=== PATIENT | male | born 2000 | race Caucasian/White ===

== ENCOUNTER 2022-09-02 05:52 | Emergency (ER) | payer OTHER ==
[2022-09-02] MEDS ORDERED: ONDANSETRON 4 MG/2 ML VIAL ONE (06:21)
[2022-09-02] MEDS ORDERED: PANTOPRAZOLE 40 MG INJ ONE (06:22)
[2022-09-02] MEDS ORDERED: NA CHLORIDE 0.9% 2,000 ML ONE (06:22)
[2022-09-02 06:24] LABS: Protime INR 0.99
[2022-09-02 06:36] LABS: Absolute Lymphocytes (CBC) 2.4 K/uL (0.7-4.9); Hematocrit 59.2 % (39.6-49.0); Lymphocytes % 10.6 % (15.3-44.8); MCV 87.9 fL (80-100); MPV 9.3 fL (7.6-11.3); RBC Red Blood Cell Count 6.73 M/uL (4.33-5.43)
[2022-09-02 06:48] LABS: Bilirubin Direct 0.3 mg/dL (0-0.2); Bilirubin Total 1.2 mg/dL (0.2-1.0); Protein, Total 12.2 g/dL (6.4-8.2); Troponin High Sensitivity 12.1 pg/mL (<58.9)
[2022-09-02 06:50] LABS: Albumin 7.7 g/dL (3.4-5.0); Magnesium 3.7 mg/dL (1.6-2.4); Potassium 2.9 mmol/L (3.5-5.1)
--- NOTE | 2022-09-02 06:59 | EDPHYS ---
Physician Documentation [facility] Name: Sherman Gooden Age: 22 yrs Sex: Male : 2000 Arrival Date: 09/02/2022 Time: 05:55 Bed 20 Private MD: ED Physician Cameron Boateng HPI: 09/02 06:31 This 22 yrs old white Male presents to ER via EMS with complaints of vomiting, cramping jac and abd pain. 06:31 The patient presents with abdominal pain in the upper abdomen, in the lower abdomen. jac Onset: The symptoms/episode began/occurred last night. The patient presents to the emergency department with nausea, vomiting, that is continuous, abdominal pain, of the right upper quadrant, left upper quadrant, right lower quadrant and left lower quadrant. Onset: The symptoms/episode began/occurred last night. Possible causes: unknown. The symptoms are aggravated by nothing. The symptoms are alleviated by nothing. The symptoms do not radiate. Associated signs and symptoms: Pertinent positives: abdominal pain, anorexia, nausea, vomiting. Historical: - Allergies: 06:14 No Known Allergies; ha1 - PMHx: 06:14 ADD/ADHD; ha1 - PSHx: 06:14 None; ha1 - Immunization history:: Adult Immunizations up to date. - Social history:: Smoking status: unknown. - Family history:: not pertinent. ROS: 06:31 Constitutional: Negative for fever, chills, and weight loss, Eyes: Negative for injury, jac pain, redness, and discharge, ENT: Negative for injury, pain, and discharge, Neck: Negative for injury, pain, and swelling, Cardiovascular: Negative for chest pain, palpitations, and edema, Respiratory: Negative for shortness of breath, cough, wheezing, and pleuritic chest pain, Back: Negative for injury and pain, : Negative for injury, bleeding, discharge, and swelling, MS/Extremity: Negative for injury and deformity, Skin: Negative for injury, rash, and discoloration, Neuro: Negative for headache, weakness, numbness, tingling, and seizure, Psych: Negative for depression, anxiety, suicide ideation, homicidal ideation, and hallucinations, Allergy/Immunology: Negative for hives, rash, and allergies, Endocrine: Negative for neck swelling, polydipsia, polyuria, polyphagia, and marked weight changes, Hematologic/Lymphatic: Negative for swollen nodes, abnormal bleeding, and unusual bruising. 06:31 Abdomen/GI: Positive for abdominal pain, nausea and vomiting. Exam: 06:31 Constitutional: This is a well developed, well nourished patient who is awake, alert, jac and in no acute distress. Head/Face: Normocephalic, atraumatic. Eyes: Pupils equal round and reactive to light, extra-ocular motions intact. Lids and lashes normal. Conjunctiva and sclera are non-icteric and not injected. Cornea within normal limits. Periorbital areas with no swelling, redness, or edema. ENT: Nares patent. No nasal discharge, no septal abnormalities noted. Tympanic membranes are normal and external auditory canals are clear. Oropharynx with no redness, swelling, or masses, exudates, or evidence of obstruction, uvula midline. Mucous membranes moist. Neck: Trachea midline, no thyromegaly or masses palpated, and no cervical lymphadenopathy. Supple, full range of motion without nuchal rigidity, or vertebral point tenderness. No Meningismus. Chest/axilla: Normal chest wall appearance and motion. Nontender with no deformity. No lesions are appreciated. Cardiovascular: Regular rate and rhythm with a normal S1 and S2. No gallops, murmurs, or rubs. Normal PMI, no JVD. No pulse deficits. Respiratory: Lungs have equal breath sounds bilaterally, clear to auscultation and percussion. No rales, rhonchi or wheezes noted. No increased work of breathing, no retractions or nasal flaring. Back: No spinal tenderness. No costovertebral tenderness. Full range of motion. Male : Normal genitalia with no discharge or lesions. MS/ Extremity: Pulses equal, no cyanosis. Neurovascular intact. Full, normal range of motion. Neuro: Awake and alert, GCS 15, oriented to person, place, time, and situation. Cranial nerves II-XII grossly intact. Motor strength 5/5 in all extremities. Sensory grossly intact. Cerebellar exam normal. Normal gait. Psych: Awake, alert, with orientation to person, place and time. Behavior, mood, and affect are within normal limits. 06:31 Abdomen/GI: Inspection: abdomen appears normal, Bowel sounds: normal, Palpation: mild abdominal tenderness, in all quadrants, Liver: no appreciated palpable abnormalities, Hernia: not appreciated. 06:31 Skin: Appearance: Color: pale, Temperature: normal temperature, Moisture: normal moisture, petechiae, not noted. 07:31 ECG was reviewed by the Attending Physician. [facility] Vital Signs: 05:55 BP 129 / 54; Pulse 96; Resp 21 S; Temp 97.6(O); Pulse Ox 100% ; Weight 72.57 kg; Height ha1 5 ft. 10 in. (177.80 cm); Pain 10/10; 05:55 BP 129 / 54; Pulse 96; Resp 21; Pulse Ox 100% on R/A; ha1 06:45 BP 111 / 78; Pulse 79; Resp 15 S; Pulse Ox 100% on R/A; ha1 09:21 BP 106 / 64; Pulse 82; Resp 16; Pulse Ox 98% on R/A; Pain 1/10; ss 10:57 BP 125 / 81; Pulse 82; Resp 17; Pulse Ox 99% on R/A; kr3 05:55 Body Mass Index 22.96 (72.57 kg, 177.80 cm) 1 MDM: 05:58 Patient medically screened. [facility] 06:31 Data reviewed: vital signs, nurses notes, lab test result(s), EKG, radiologic studies, [facility] CT scan, plain films. Consideration of Admission/Observation Patient was admitted/placed on observation. Escalation of care including admission/observation considered. Test considered but Not performed: Ultrasound us of gallbladder. Care significantly affected by the following chronic conditions: adhd/add. 08:29 ED course: Discussed case with Medicine at [facility] and they would like NS given, another ms3 20 meq KCl given and a lactic acid checked. Want a callback after LA returns.. 09:15 ED course: Called by lab for lactic acid of 4.0. Patient does not have an infectious ms3 source at this time.. 09:45 ED course: [facility] accepts patient at this time.. ms3 09/02 06:01 Order name: Basic Metabolic Panel; Complete Time: 06:51 [facility] 09/02 06:01 Order name: CBC with Diff [facility] 09/02 06:01 Order name: LFT's; Complete Time: 06:51 [facility] 09/02 06:01 Order name: Magnesium; Complete Time: 06:51 [facility] 09/02 06:01 Order name: NT PRO-BNP; Complete Time: 06:51 [facility] 09/02 06:01 Order name: PT-INR; Complete Time: 06:50 [facility] 09/02 06:01 Order name: Troponin HS; Complete Time: 06:51 [facility] 09/02 06:01 Order name: Lipase; Complete Time: 06:51 [facility] 09/02 06:01 Order name: UDS [facility] 09/02 06:08 Order name: Glucose, Ancillary Testing; Complete Time: 06:50 EDMS 09/02 06:10 Order name: Glucose, Ancillary Testing EDWI 09/02 06:43 Order name: Manual Differential EDMS 09/02 06:52 Order name: ABG [facility] 09/02 07:00 Order name: COVID-19/FLU A+B; Complete Time: 08:23 wm 09/02 06:01 Order name: XRAY Chest (1 view) [facility] 09/02 06:51 Order name: CT Abd/Pelvis - Without Contrast; Complete Time: 07:34 [facility] 09/02 08:27 Order name: Lactate w/ 2H reflex if indic. ms3 09/02 11:19 Order name: Urine Dipstick-Ancillary [facility] 09/02 06:01 Order name: EKG; Complete Time: 06:02 [facility] 09/02 06:01 Order name: Cardiac monitoring [facility] 09/02 06:01 Order name: EKG - Nurse/Tech; Complete Time: 07:32 [facility] 09/02 06:01 Order name: IV Saline Lock; Complete Time: 06:10 [facility] 09/02 06:01 Order name: Labs collected and sent; Complete Time: 06:10 [facility] 09/02 06:01 Order name: O2 Per Protocol; Complete Time: 06:10 [facility] 09/02 06:01 Order name: O2 Sat Monitoring; Complete Time: 06:10 [facility] 09/02 06:52 Order name: IV Saline Lock - Large Bore; Complete Time: 08:45 [facility] EC:31 Rate is 89 beats/min. Rhythm is regular. QRS [place] is Normal. [place] interval is normal. QRS jac interval is normal. QT interval is normal. No Q waves. T waves are Normal. No ST changes noted. Clinical impression: Normal ECG, NSR w/ Non-specific ST/T Changes, and No evidence of ischemia. Interpreted by me. Reviewed by me. Administered Medications: 06:15 Drug: NS 0.9% 1000 ml Route: IV; Rate: 1 bolus; Site: right antecubital; ha1 11:59 Follow up: Response: No adverse reaction; IV Status: Completed infusion; IV Intake: kr3 1000ml 06:16 Drug: NS 0.9% 1000 ml Route: IV; Rate: 1 bolus; Site: right antecubital; ha1 11:59 Follow up: Response: No adverse reaction; IV Status: Completed infusion; IV Intake: kr3 1000ml 06:17 Drug: Zofran (Ondansetron) 4 mg Route: IVP; Site: right antecubital; ha1 12:00 Follow up: Response: No adverse reaction kr3 06:20 Drug: ProTONIX (pantoprazole) 40 mg Route: IVP; Site: right antecubital; ha1 12:00 Follow up: Response: No adverse reaction kr3 07:24 Drug: Potassium Chloride 20 mEq Route: IV; Rate: per protocol; Site: right antecubital; kr3 12:02 Follow up: Response: No adverse reaction; IV Status: Completed infusion; IV Intake: kr3 100ml 07:59 Drug: NS 0.9% 1000 ml Route: IV; Rate: 125 ml/hr; Site: right antecubital; kr3 12:02 Follow up: Response: No adverse reaction; IV Status: Infusion continued; IV Intake: kr3 750ml 09:06 Not Given (Physician Discretion): NS 0.9% 1000 ml IV at 1000 ml once kr3 09:28 Drug: Potassium Chloride 20 mEq Route: IV; Rate: calculated rate; Site: right [address]; 11:59 Follow up: Response: No adverse reaction; IV Status: Completed infusion; IV Intake: kr3 1000ml 12:01 Follow up: Response: No adverse reaction; IV Status: Completed infusion; IV Intake: kr3 100ml 12:01 Not Given (Physician Discretion): Phenergan (promethazine) 25 mg IM once kr3 12:01 Not Given (Physician Discretion): morphine 2 mg IVP once over 4 mins kr3 12:03 Not Given (Physician Discretion): morphine 2 mg IVP once over 4 mins kr3 Disposition Summary: 09/02/22 07:30 Transfer Ordered Transfer Location: Other Acute Care Facility jac Reason: Higher level of care jac Condition: Fair(09/02/22 07:30) jac Problem: new(09/02/22 07:30) jac Symptoms: have improved(09/02/22 07:30) jac Accepting Physician: Dr. Hilario Zuluaga/ [facility] Charo(09/02/22 11:56) kr3 Diagnosis - Elevated white blood cell count(09/02/22 07:30) jac - Abdominal pain, Generalized(09/02/22 07:30) jac - Vomiting(09/02/22 07:30) jac - Hypokalemia(09/02/22 07:30) jac - Hypercalcemia(09/02/22 07:30) jac - Dehydration jac - Acute kidney failure, unspecified(09/02/22 07:30) jac Forms: - Medication Reconciliation Form jac - SBAR form jac Signatures: Dispatcher [employer] EDMS Ishmael Garcia MD MD cha Botello, Elizabeth eb Sims, Marcus, DO DO ms3 Anali Cross, RN RN ha1 Angela Duke RN RN kr3 Corrections: (The following items were deleted from the chart) 06:50 06:50 Home jac jac 06:50 06:50 new jac jac 06:50 06:50 have improved jac jac 06:50 06:50 Stable jac jac 06:50 06:50 Vomiting jac jac 06:50 06:50 Weakness jac jac 06:57 06:30 Abdomen Pelvis W Con+CT.RAD.BRZ ordered. EDWI EDMS 07:27 06:58 Inpatient Admission jac jac 07:27 06:58 Jeanne, Main jac jac 07:27 06:58 Telemetry/MedSurg (Inpatient) jac jac 07:27 06:58 Fair jac jac 07:27 06:58 new jac jac 07:27 06:58 have improved jac jac 07:27 06:58 Standard jac jac 07:27 06:58 jac jac 07:27 06:58 Abdominal pain, Generalized jac jac 07:27 06:58 Vomiting jac jac 07:27 06:58 Hypokalemia jac jac 07:27 06:58 Acute kidney failure, unspecified jac jac 07:27 06:58 Elevated white blood cell count jac jac 07:27 07:23 Hypercalcemia jac jac 10:45 07:[address] [facility] 11:56 10:45 Dr. Hilario Zuluaga/ [facility] Charo eb kr3
--- NOTE | 2022-09-02 06:59 | ER ---
Nurse's Notes [facility] Name: Sherman Gooden Age: 22 yrs Sex: Male : 2000 Arrival Date: 09/02/2022 Time: 05:55 Bed 20 Private MD: Diagnosis: Elevated white blood cell count;Abdominal pain, Generalized;Vomiting;Hypokalemia;Hypercalcemia;Dehydration;Acute kidney failure, unspecified Presentation: 09/02 05:50 Chief complaint: EMS states: 22 year old male reports having severe abdominal pain, ha1 nausea, and vomiting since yesterday around 11PM. 05:50 Initial Sepsis Screen: Does the patient meet any 2 criteria? RR > 20 per min. HR > 90 ha1 bpm. Yes Does the patient have a suspected source of infection? Yes:. Risk Assessment: Do you want to hurt yourself or someone else? Patient reports no desire to harm self or others. Onset of symptoms was September 02, 2022. 05:50 Acuity: ENRRIQUE 3 ha1 05:55 Method Of Arrival: EMS: [facility] ha1 05:55 Coronavirus screen: Vaccine status: Patient reports being unvaccinated. Ebola Screen: ha1 No symptoms or risks identified at this time. Triage Assessment: 05:55 General: Appears ill, Behavior is cooperative. Pain: Complains of pain in abdomen. ha1 Pain: Pain radiates to right leg and left leg Pain currently is 10 out of 10 on a pain scale. Quality of pain is described as crampy. EENT: No signs and/or symptoms were reported regarding the EENT system. Neuro: Level of Consciousness is awake, alert, obeys commands, Oriented to person, place, time, situation. Cardiovascular: Patient's skin is warm and dry. GI: Abdomen is flat, non-distended, Bowel sounds present X 4 quads. Reports nausea, vomiting, abdominal pain. Historical: - Allergies: 06:14 No Known Allergies; ha1 - PMHx: 06:14 ADD/ADHD; ha1 - PSHx: 06:14 None; ha1 - Immunization history:: Adult Immunizations up to date. - Social history:: Smoking status: unknown. - Family history:: not pertinent. Screenin:55 Abuse screen: Denies threats or abuse. Denies injuries from another. Nutritional ha1 screening: No deficits noted. Tuberculosis screening: No symptoms or risk factors identified. 11:58 [facility] ED Fall Risk Assessment (Adult) History of falling in the last 3 months, kr3 including since admission No falls in past 3 months (0 pts) Confusion or Disorientation No (0 pts) Intoxicated or Sedated No (0 pts) Impaired Gait No (0 pts) Mobility Assist Device Used No (0 pt) Altered Elimination No (0 pt) Score/Fall Risk Level 0 - 2 = Low Risk Oriented to surroundings, Maintained a safe environment, Educated pt \T\ family on fall prevention, incl call for assistance when getting out of bed. Assessment: 06:29 General: see triage assessment. ha1 06:45 Reassessment: Patient and/or family updated on plan of care and expected duration. Pain ha1 level reassessed. Patient is alert, oriented x 3, equal unlabored respirations, skin warm/dry/pink. Patient states feeling better. Patient states symptoms have improved. Vital Signs: 05:55 BP 129 / 54; Pulse 96; Resp 21 S; Temp 97.6(O); Pulse Ox 100% ; Weight 72.57 kg; Height ha1 5 ft. 10 in. (177.80 cm); Pain 10/10; 05:55 BP 129 / 54; Pulse 96; Resp 21; Pulse Ox 100% on R/A; ha1 06:45 BP 111 / 78; Pulse 79; Resp 15 S; Pulse Ox 100% on R/A; ha1 09:21 BP 106 / 64; Pulse 82; Resp 16; Pulse Ox 98% on R/A; Pain 1/10; ss 10:57 BP 125 / 81; Pulse 82; Resp 17; Pulse Ox 99% on R/A; kr3 05:55 Body Mass Index 22.96 (72.57 kg, 177.80 cm) ha1 ED Course: 05:55 Patient arrived in ED. vc1 05:55 Arm band placed on right wrist. ha1 05:58 Ishmael Garcia MD is Attending Physician. [facility] 06:00 Inserted saline lock: 20 gauge antecubital area, using aseptic technique. Blood ha1 collected. 06:09 Anali Cross, MENDOZA is Primary Nurse. ha1 06:14 Triage completed. ha1 06:17 XRAY Chest (1 view) In Process Unspecified. EDMS 06:53 Main Angel MD is Hospitalizing Provider. jac 06:55 Patient has correct armband on for positive identification. Placed in gown. Bed in low ha1 position. Call light in reach. Side rails up X 1. 07:11 CT Abd/Pelvis - Without Contrast In Process Unspecified. EDMS 07:20 COVID-19/FLU A+B Sent. ha1 07:31 intiated a transfer with Ina from the [facility] transfer at the request of the patient due eb to patient's insurance being out of network for our facility. 07:36 faxed patient face sheet to the [facility] transfer center at [phone]. eb 08:[address] Boateng [address] Dr. Zuluaga the hospitalist combustion engineer for [facility] for eb patient transfer consultation. 08:46 Inserted saline lock: 20 gauge in left antecubital area, using aseptic technique. Blood kr3 collected. 09:17 called the transfer center and updated Ina with patient vitals and lab results/ She eb will update Dr. Zuluaga and call us back. 09:[address] Zuluaga again with Dr. Boateng for patient transfer consultation. eb 09:45 Attending Physician role handed off by Ishmael Garcia MD ms3 09:45 Cameron Boateng DO is Attending Physician. ms3 10:03 administrative approval given by Suyapa Tomlin / patient has been accepted to [facility] Laura Bardales 10A 10 02/ Dr. Hilario Zuluaga has accepted the patient in transfer/ report to be called to [phone]. 11:57 No provider procedures requiring assistance completed. Patient transferred, IV remains kr3 in place. Administered Medications: 06:15 Drug: NS 0.9% 1000 ml Route: IV; Rate: 1 bolus; Site: right antecubital; ha1 11:59 Follow up: Response: No adverse reaction; IV Status: Completed infusion; IV Intake: kr3 1000ml 06:16 Drug: NS 0.9% 1000 ml Route: IV; Rate: 1 bolus; Site: right antecubital; ha1 11:59 Follow up: Response: No adverse reaction; IV Status: Completed infusion; IV Intake: kr3 1000ml 06:17 Drug: Zofran (Ondansetron) 4 mg Route: IVP; Site: right antecubital; ha1 12:00 Follow up: Response: No adverse reaction kr3 06:20 Drug: ProTONIX (pantoprazole) 40 mg Route: IVP; Site: right antecubital; ha1 12:00 Follow up: Response: No adverse reaction kr3 07:24 Drug: Potassium Chloride 20 mEq Route: IV; Rate: per protocol; Site: right antecubital; kr3 12:02 Follow up: Response: No adverse reaction; IV Status: Completed infusion; IV Intake: kr3 100ml 07:59 Drug: NS 0.9% 1000 ml Route: IV; Rate: 125 ml/hr; Site: right antecubital; kr3 12:02 Follow up: Response: No adverse reaction; IV Status: Infusion continued; IV Intake: kr3 750ml 09:06 Not Given (Physician Discretion): NS 0.9% 1000 ml IV at 1000 ml once kr3 09:28 Drug: Potassium Chloride 20 mEq Route: IV; Rate: calculated rate; Site: right [facility] antecubital; 11:59 Follow up: Response: No adverse reaction; IV Status: Completed infusion; IV Intake: kr3 1000ml 12:01 Follow up: Response: No adverse reaction; IV Status: Completed infusion; IV Intake: kr3 100ml 12:01 Not Given (Physician Discretion): Phenergan (promethazine) 25 mg IM once kr3 12:01 Not Given (Physician Discretion): morphine 2 mg IVP once over 4 mins kr3 12:03 Not Given (Physician Discretion): morphine 2 mg IVP once over 4 mins kr3 Medication: 11:58 VIS not applicable for this client. kr3 Intake: 11:59 IV: 1000ml; Total: 1000ml. kr3 11:59 IV: 1000ml; Total: 2000ml. kr3 11:59 IV: 1000ml; Total: 3000ml. kr3 12:01 IV: 100ml; Total: 3100ml. kr3 12:02 IV: 750ml; Total: 3850ml. kr3 12:02 IV: 100ml; Total: 3950ml. kr3 Outcome: 06:50 Discharge ordered by . jac 06:58 Decision to Hospitalize by Provider. jac 07:30 ER care complete, transfer ordered by MD. jac 11:56 Patient left the ED. kr3 11:57 Transferred by ground EMS to [facility]. kr3 11:57 Condition: stable 11:57 Instructed on the need for transfer. Signatures: Dispatcher [employer] EDIshmael Sanchez MD MD cha Smirch, Shelby, RN RN Blanka Muñiz Marcus, DO DO ms3 Mandy Madrigal RN RN vc1 Anali Cross RN RN ha1 Angela Duke RN RN kr3 Corrections: (The following items were deleted from the chart) 09:19 08:[address] Boateng with the hospitalist combustion engineer for [facility] for patient transfer eb consultation. eb
[2022-09-02] MEDS ORDERED: KCL 20 MEQ/100 mL IVPB 100 ML IV ONE ×2 (07:22→09:26)
--- NOTE | 2022-09-02 07:32 | RAD REPORT ---
EXAM DESCRIPTION: CT - Abdomen Pelvis Wo Contrast - 09/02/2022 7:10 am CLINICAL HISTORY: Abdominal pain COMPARISON: None TECHNIQUE: Computed axial tomography of the abdomen and pelvis was obtained. IV and oral contrast we re not requested. All CT scans are performed using dose optimization technique as appropriate and may include automated exposure control or mA/KV adjustment according to patient size. FINDINGS: The evaluation of solid organs, vessels and bowel is limited secondary to the lack of con trast administration. Hepatic and splenic granulomata. Pancreas, adrenals and kidneys appear grossly normal. The appendix is normal. There is no evidence of diverticulitis. IMPRESSION: No acute abnormality is displayed.
[2022-09-02 07:50] LABS: Arterial Blood Carboxyhemoglob 0.7 % (0-1.5); Blood Gas Oxyhemoglobin 95.4 % (94-97); Blood O2 Saturation 97.3 % (92-98.5)
[2022-09-02] MEDS ORDERED: NA CHLORIDE 0.9% 1,000 ML ONE (07:53)
[2022-09-02 08:03] LABS: SARS-COV-2 RT PCR NEGATIVE (NEGATIVE)
[2022-09-02 09:54] LABS: Platelet Estimate ADEQ
[2022-09-02 09:55] LABS: Blood Morphology Comment NOT SEEN (NOT SEEN)
[2022-09-02 11:19] LABS: Urine Blood 2+ (Negative); Urine Glucose Negative (Negative); Urine Protein 3+ (Negative); Urine Specific Gravity >=1.030 (1.005-1.030); Urine pH 5.5 (5.0-7.0)
[2022-09-02 11:32] LABS: Barbiturates NEGATIVE (NEGATIVE); Benzodiazepines NEGATIVE (NEGATIVE); Cocaine NEGATIVE (NEGATIVE); METHAMPHETAM NEGATIVE (NEGATIVE); Methadone NEGATIVE (NEGATIVE); Opiates NEGATIVE (NEGATIVE); Phencyclidine NEGATIVE (NEGATIVE); THC Cannibis POSITIVE (NEGATIVE)
--- NOTE | 2022-09-02 12:18 | RAD REPORT ---
EXAM DESCRIPTION: RAD - Chest Single View - 09/02/2022 6:16 am CLINICAL HISTORY: 22 years Male COUGH COMPARISON: None FINDINGS: Lung volumes adequate. Cardiac silhouette is normal. No pneumothorax. No large pleural effusion. No focal consolidation. No acute bony finding. IMPRESSION: No acute cardiopulmonary findings. Electronically signed by: Gerson Pennington MD 09/02/2022 6:23 AM HOT END OPERATOR Due to temporary technical issues with the PACS/Fluency reporting system, reports are being signed by the in house radiologists without review as a courtesy to insure prompt reporting. The interpreting radiologist is fully responsible for the content of the report.
[2022-09-02 12:20] VITALS: TEMP 97.6
[2022-09-02 12:24] VITALS: BP 125/81; O2SAT 99
--- NOTE | 2022-09-05 17:02 | EKG ---
Test Date: 2022-09-02 Test Time: 07:27:52 Test Clerk: HERNANDEZ MEASUREMENT RESULTS: Intervals: Rate: 89 KS: 154 QRSD: 86 QT: 360 QTc: 438 Remus: P: 75 KS: 154 QRS: 66 T: 48 INTERPRETIVE STATEMENTS: Normal sinus rhythm Right atrial enlargement Borderline ECG Compared to ECG 07/31/2009 15:46:55 Atrial abnormality now present Electronically Signed On 09-05-22 16:57:43 EDUCATIONAL ADMINISTRATOR by Francisco Monge
== END 2022-09-02 11:56 ==
LOC: ER 05:52
DX: E86.0 Dehydration (principal); E87.6 Hypokalemia; E83.52 Hypercalcemia; N17.9 Acute kidney failure, unspecified; D72.829 Elevated white blood cell count, unspecified; R10.84 Generalized abdominal pain; Z20.822 Contact with and (suspected) exposure to COVID-19
CPT/HCPCS: 96365; 96361; 93005; 85025; 80048; 36415; 83735; 85610; 82947; 80076; 83605; 81003; 84484; 83690; 83880; 0240U; 80307; 74176; 71045; 82805; 96375; 99285; 96366; C9113; J3480 ×2; J7030 ×2; J2405